=== PATIENT | male | born 1990 | race Caucasian/White ===

== ENCOUNTER 2020-04-13 18:14 | Inpatient (IN) | payer BC, MEDICAID ==
[~2020-04-13] VITALS: Ht 172.7 cm; Wt 66.6 kg
[2020-04-13] MEDS ORDERED: magnesium hydroxide 30ml (MOM) UD suspension PO PRN (19:05)
[2020-04-13] MEDS ORDERED: acetaminophen 325mg tablet PO PRN (19:05)
[2020-04-13] MEDS ORDERED: haloperidol 5mg tablet PO PRN (19:05)
[2020-04-13] MEDS ORDERED: mag hydrox/Alum hydrox/simeth 30ml oral suspension PO PRN (19:05)
[2020-04-13] MEDS ORDERED: diphenhydrAMINE 25mg capsule PO PRN (19:05)
[2020-04-13] MEDS ORDERED: loperamide 2mg capsule PO PRN (19:05)
[2020-04-13] MEDS ORDERED: LORazepam 1 MG tablet PO PRN (19:05)
[2020-04-13] MEDS ORDERED: quetiapine 100mg tablet PO PRN (19:05)
[2020-04-13] MEDS ORDERED: NO HOME MEDS (19:39)
[2020-04-13 20:00] VITALS: BP 112/78
[2020-04-13] MEDS: traZODone 50mg tablet PO PRN (20:40)
[2020-04-13] MEDS: acetaminophen 325mg tablet PO PRN (20:40)
--- NOTE | 2020-04-14 01:36 | NUR ---
ADMIT NOTE: Pt admitted to unit at 1853, accompanied by BERONICA Otero. Safety check completed and belongings inventoried. Oriented to unit, shower offered, but pt declined. Why here: Pt brought into [facility] by after becoming increasingly agitated during an argument with his girlfriend; he became so upset that he began to perform self harm by hitting head on the cement outside the home. Pt had been drinking and using cocaine. The neighbors called the welding operator and he was brought in for a mental evaluation for DTS. Pt has a hx of feeling SI, substance abuse and self-harm behavior while under the influence. He has never been admitted nor diagnosed with a psychiatric condition. 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 Social Support: GF and her 2 kids Neighbors - 2 men in their 40s Remains in contact with foster parents Mother committed suicide when he was 27 (they had rekindled their relationship when he turned 20) Drug Hx: Meth, 8 months from [id number] Alcohol, Recent spike since pandemic onset, increasing through March: 3-4 mixed drinks and a~5 beers nightly Tobacco, Current everyday smoker, ~7 cigarettes daily Medical Hx: L4/L5 Chronic pain, had steroid injections in the past Pt currently endorsing SI vaguely, but stating he is trying to remain positive regarding recent argument and break up with his gf. This is a primary social support for the pt and he presented as teary and sad through out the assessment. Endorses 9/10 depression and 6/10 anxiety; pt stated he would play xbox a lot before as a method of coping, prior to drinking. Pt stated he has a hard time controlling how much he drinks when in an environment when other people are drinking. Recently, pts gf has had family members visiting that are heavy drinkers; pt states he has fallen in line with those habits and now it is causing a lot of problems, including this current crisis. Yoanna felt off and on like killing myself in my life, and I stated I wanted to drive and wrap myself around a tree the other night, but I know I need help. Pt wants to get better and and is hopeful that he will be able to rekindle his relationship. He is attached to her children and states I have seen a lot of symbols in nature on the ride up here that we are going to be okay. Pt cries when discussing his relationship status.
[2020-04-14] MEDS: hydrOXYzine 25 MG tablet PO PRN ×2 (07:53→14:00)
[2020-04-14 07:56] VITALS: BP 129/70
[2020-04-14] MEDS: nicotine 21mg patch - 24 hr TD SCH (07:56)
[2020-04-14 08:06] LABS: HEMOGLOBIN A1C 5.1 % (4.5-6.2)
[2020-04-14 08:12] LABS: CHOL/HDL RATIO 2.8 (0.00-4.99); CHOLESTEROL 135 MG/DL (0-200); HDL CHOLESTEROL 48 MG/DL (35-60); LDL CHOLESTEROL 74 MG/DL (50-100); TRIGLYCERIDES 58 MG/DL (20-135)
--- NOTE | 2020-04-14 10:01 | NUR ---
Malnutrition Consult: Pt admit to [facility] pending note at this time for DX. PO 75-100% avg first meal today, no edema/wounds, normal strength, and no prior wt hx since initial admit. At this time pt does not meet minimum malnutrition criteria. Will continue to monitor. Addendum: 04/14/20 at [address] Amended: Links added.
[2020-04-14] MEDS: multivitamins, therapeutics tablet PO SCH (13:10)
[2020-04-14] MEDS: folic acid 1mg tablet PO SCH (13:10)
--- NOTE | 2020-04-14 15:51 | NUR ---
Nursing Progress Note: Legal hold: 5150 Client on involuntary status for DTS. Report received from EVELIA Vo with the use of SBAR. Why are they here: Per report, pt brought into [facility] by after becoming increasingly agitated during an argument with his girlfriend; he became so upset that he began to perform self-harm by hitting head on the cement outside the home. Pt had been drinking and using cocaine. The neighbors called the machine whitener and he was brought in for a mental evaluation for DTS. Assessment What has happened this shift: Pt sleeping at the change of shift. He was cooperative with assessment. Pt shares that he has felt sad since Wednesday. Pt reports depression and anxiety. Pt denies SI, A/V H. Pt became tearful as he spoke about his mom. He says he still feels like he is in denial over his moms . He reports that he feels resentful because of caring for his mom all the time. 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 He talks about making many mistakes and identifies his alcohol use as the source of his issues. He said that he was in the [place] crisis unit last year due to feeling overwhelmed, depressed, and suicidal. As he talked about his feelings, he stated, Ultimate fear is leaving here and going back to nothing and having to come back to this [unit]. He is motivated to seek help and discover ways to deal with his problems. S/I, H/I: Denies at this time A/VH: Denies Sleep: Napped during the morning ADL's: Independent Group attendance: N/A Were meds taken: Yes Any med S/E: None noted or observed Mental Status Exam Appearance: Neat and clean, green scrubs Eye contact: Direct Behavior: Pleasant and cooperative Speech: Normal rate and rhythm Mood: Depressed Affect: Tearful Thought process: Linear and connected Thought Content: Concerned about girlfriend and their issues. Resentful feelings towards his mother and feeling of denial over her . Cognition: A&Ox4 Insight: fair Judgment: fair Interventions PRN's used: Atarax x2 Therapeutic interventions: Maintained a safe and supportive milieu, provided clear and simple instructions, active listening, 1:1 therapeutic assessment, attempted to re-orient to reality, medication administration/education/monitoring, Q15 min safety checks. Restraints/seclusion/emergency medication: N/A Justification of Continued Inpatient Treatment: Pt continues to endorse depression, sadness, and anxiety. He denies SI, but feels he would not be safe if he were discharged at this time. Continued treatment is needed to interrupt current crisis, provide medication management, and decrease the risk of re-hospitalization if discharged before condition is stabilized.
[2020-04-14] MEDS: acetaminophen 325mg tablet PO PRN (19:19)
[2020-04-14 20:00] VITALS: BP 131/81
[2020-04-14] MEDS: traZODone 50mg tablet PO PRN (21:39)
--- NOTE | 2020-04-15 02:00 | NUR ---
Nursing Progress Note: Legal hold: 5150 Client on involuntary status for DTS Report received from EVELIA Burno with the use of SBAR. Why are they here: Per report, pt brought into [place] by after becoming increasingly agitated during an argument with his girlfriend; he became so upset that he began to perform self-harm by hitting head on the cement outside the home. Pt had been drinking and using cocaine. The neighbors called the gear repair supervisor and he was brought in for a mental evaluation for DTS. Assessment What has happened this shift: Pt watching TV during change of shift, and predominantly spent the evening enjoying a movie and engaging with peers. During 1:1, pt denied SI but endorses increased depression and anxiety from last night. When asked to elaborate, pt stated it is because he talked to his gf for the first time since being taken to the hospital. The conversation overall went well and i was able to share that we may need to have counseling to improve our communication. I understand she is still angry about the incident but relieved to know she still considers us to be in a relationship. 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 Pt continued to state all the measures he needs to take to ensure the relationship goes well; RN reminded pt that it is team effort and both parties should be contributing to positive change. Pt agreed, but states he doesnt think she is as empathetic/sympathetic as him; I had to work hard to see things the way I do now. Pt states he wants to help others, and that he felt like he connected with a peer. I was able to give her advice and now she seems happier. RN applauded being aware of others plights but to not lose sight of focusing on helping himself while he is here. Pt agreed, and states he is overall optimistic and wants to change but fears I am going to end up making mistakes like my mother. Pt says he never dealt with the grief of her passing, predominantly feeling resentment and sadness, and thinks I just need to find a new mom to fill the void. RN countered that it is best first to process his complicated grief before searching for someone to fill that void; pt became teary and said Yes. I have a lot I want to accomplish. S/I, H/I: Denies A/VH: Denies Sleep: Sleeping well during the night with PRN aid. See Sleep Assessment. ADL's: Independent Group attendance: N/A Were meds taken: Yes Any med S/E: None noted nor observed Mental Status Exam Appearance: Neat, wearing unit scrub pants, personal shirts, and nonskid socks with slip on sandals Eye contact: Direct Behavior: Pleasant, Cooperative, Watching TV, Attended snack, Engaging with a few peers Speech: Clear, normal rate and rhythm Mood: Depressed but hopeful Affect: Congruent to mood, intermittently tearful Thought process: Linear Thought Content: Improving communication with his gf, learning how to process his mothers , goals for the future Cognition: A&Ox4 Insight: Fair Judgment: Fair Interventions PRN's used: Tylenol 650mg for lower back pain to good effect Therapeutic interventions: Maintained a safe and supportive milieu, provided clear and simple instructions, active listening, 1:1 therapeutic assessment, attempted to re-orient to reality, medication administration/education/monitoring, Q15 min safety checks. Restraints/seclusion/emergency medication: N/A Justification of Continued Inpatient Treatment: Pt continues to endorse depression and anxiety. Pt feels he would not be safe if he were discharged at this time. Continued treatment is needed to interrupt current crisis, provide medication management, and decrease the risk of re-hospitalization if discharged before condition is stabilized.
[2020-04-15] MEDS: folic acid 1mg tablet PO SCH (08:03)
[2020-04-15] MEDS: multivitamins, therapeutics tablet PO SCH (08:03)
[2020-04-15] MEDS: venlafaxine XR 37.5mg cap (Q24H) PO SCH (08:03)
[2020-04-15] MEDS: nicotine 21mg patch - 24 hr TD SCH (08:04)
[2020-04-15 08:51] VITALS: BP 117/80
[2020-04-15] MEDS: hydrOXYzine 25 MG tablet PO PRN ×2 (09:47→19:59)
--- NOTE | 2020-04-15 17:34 | NUR ---
NURSING PROGRESS NOTE: Legal hold: 5150 Client on involuntary status for DTS Report received from RN with use of SBAR Why are they here: Client transferred from [facility]. Client reports increasing depression and thoughts of suicide. Client is a daily Meth user, and has hx of heroin use (stopped 7 years ago). States he has access to heroin if he decided to overdose. Several prior overdose attempts. Client presents with blunted affect and depressed mood. Assessment What has happened this shift: Received pt sleeping in bed. Patient spends the day isolating and withdrawn, sleeping from coming down from meth. 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 Pt. reports that he was sober for years, then relapsed. He has been working at his first legitimate job at a[employer] p[employer] but does not know if he still has a job since he hasnt contacted them. Pt. got his son living with him, but now he is living with his aunt. Patient is homeless, and states the worst thing that could happen to me is that I get out of here and I am homeless. Pt. is thinking of relocating back to [place] where he doesnt know anybody and can start his life over again. He reports that there is a clean and sober house that will accept him in [place]. SI/HI: Denies. A/VH: Denies. Sleep: 10 hrs NOC, slept most of the day. ADL's: Independent Group attendance: NA Were meds taken: Yes, patient is medication compliant. Any med S/E: None. Mental Status Exam Appearance: Disheveled laying in bed. Eye contact: Fair Behavior: Cooperative Speech: Soft, normal rate, rhythm, and tone Mood: Depressed. Affect: Restricted Thought process: Linear Thought Content: Whether he has a job, where he will be discharged. Cognition: Lethargic Insight: Poor Judgment: Poor Interventions PRN's used: None Therapeutic interventions: 1:1 therapeutic assessment, establishment of rapport, active listening, therapeutic conversation, medication administration/education/monitoring, encouraged sleep, contracts for safety, Q15 min safety checks. Restraints/seclusion/emergency medication: N/A Justification of Continued Inpatient Treatment: Pt requires interruption of current crisis, medication adjustment and monitoring on a safe and therapeutic environment until stable to prevent self-harm and/or readmission.
[2020-04-15 20:00] VITALS: BP 109/71
[2020-04-15] MEDS: traZODone 50mg tablet PO PRN (21:27)
--- NOTE | 2020-04-16 02:37 | NUR ---
Nursing Progress Note: Legal hold: 5150 Client on involuntary status for DTS Report received from EVELIA Bruno with the use of SBAR. Why are they here: Per report, pt brought into [facility] ED by after becoming increasingly agitated during an argument with his girlfriend; he became so upset that he began to perform self-harm by hitting head on the cement outside the home. Pt had been drinking and using cocaine. The neighbors called the postal carrier and he was brought in for a mental evaluation for DTS. Assessment What has happened this shift: Pt watching TV during change of shift. During 1:1, pt denied SI but endorses decreased depression 3/10 and generalized anxiety 6/10, for which Atarax 50mg was administered to good effect. Pt states the medication helps my mind calm down so I can return to the present moment, instead of letting my anxiety or thoughts spiral. Pt states he was diagnosed with depression while here, and it gives a sense of control: I think the medications are helping because I feel more like myself. Pt is hopeful for his future, describing career goals within [employer] and personal goals of starting counseling and continuing to work on his relationship. Ill be going back to my girlfriends once Im discharged. Pt compliant with medications and went to sleep around 0. S/I, H/I: Denies A/VH: Denies Sleep: Sleeping well during the night with PRN aid. See Sleep Assessment. ADL's: Independent Group attendance: N/A Were meds taken: Yes Any med S/E: None noted nor observed Mental Status Exam Appearance: Neat, wearing unit scrub pants, personal shirt, and nonskid socks with slip on sandals Eye contact: Direct Behavior: Cooperative, Watching TV, Attended snack, Engaging with peers Speech: Clear, normal rate and rhythm Mood: Good Affect: Pleasant; talkative and laughing Thought process: Linear Thought Content: discharging and working on his goals Cognition: A&Ox4 Insight: Good Judgment: Good Interventions PRN's used: Atarax 50mg for anxiety to good effect Therapeutic interventions: Maintained a safe and supportive milieu, provided clear and simple instructions, active listening, 1:1 therapeutic assessment, attempted to re-orient to reality, medication administration/education/monitoring, Q15 min safety checks. Restraints/seclusion/emergency medication: N/A Justification of Continued Inpatient Treatment: Pending no medications changes, pt could potentially discharge within the next 24-48 hours per the provider.
[2020-04-16 08:31] VITALS: BP 114/66
[2020-04-16] MEDS: venlafaxine XR 37.5mg cap (Q24H) PO SCH (08:33)
[2020-04-16] MEDS: multivitamins, therapeutics tablet PO SCH (08:33)
[2020-04-16] MEDS: folic acid 1mg tablet PO SCH (08:33)
[2020-04-16] MEDS: nicotine 21mg patch - 24 hr TD SCH (08:33)
--- NOTE | 2020-04-16 10:00 | NUR ---
Group Therapy: Process Group This Clinicians goals for this process group were as follows: (1) Ask scaling questions about patients current anxiety, depression, and irritability symptoms as a check-in. (2) Share psychoeducation about emotional/situational triggers as they relate to the onset of unwanted mental health symptoms. (3) Identify examples of emotional/situational triggers within the group milieu. (4) Share psychoeducation on interventions as tools to reduce emotional escalation. (5) Identify several interventions within the group milieu that patients may utilizing in reducing emotional escalation caused by emotional/situational triggers. (6) Engage patients in discussion of the topics shared within the group milieu. Patient identified experiencing the following levels of anxiety, depression, and anger/irritability while present in the group milieu. Anxiety: 03/17 Depression: 04/17 Anger/irritability: 11/17 Patient presented as open and cooperative within the group milieu. Patient was dressed in a black non-descript t-shirt and green scrub bottoms. Patient presented as verbally engaged within the therapeutic milieu, often sharing comments on the topic of feelings that one experiences in their body, thoughts one experiences, and interventions that one can use to reduce emotional escalation, which this Clinician wrote down on the white board. Patient presented as nonobtrusive within the group setting. Claude Stinson MA, BJORN Addendum: 04/17/20 at 0815 by Claude Stinson SS Amended: Links added.
[2020-04-16] MEDS: hydrOXYzine 25 MG tablet PO PRN (11:54)
[2020-04-16] MEDS ORDERED: NICO-687 TD (12:30)
[2020-04-16] MEDS ORDERED: HYDR-3686 PO (12:30)
[2020-04-16] MEDS ORDERED: TRAZ-251 PO (12:30)
[2020-04-16] MEDS ORDERED: EFF37.5XRC PO (12:30)
--- NOTE | 2020-04-16 13:25 | NUR ---
DISCHARGE NOTE: Patient's belongings were inventoried and given to patient. Patient denies SI. Patient is discharged in stable condition.
[2020-04-17] MEDS ORDERED: venlafaxine XR 37.5mg cap (Q24H) PO SCH (08:00)
== END 2020-04-16 13:25 | disposition short-term general hospital (02) | DRG 751 ==
LOC: ADULT MH 18:50
PROVIDERS: ADMIT Psychiatry & Neurology Psychiatry; ATTEND Psychiatry & Neurology Psychiatry
DX: F33.1 Major depressive disorder, recurrent, moderate (principal); F10.10 Alcohol abuse, uncomplicated; F43.12 Post-traumatic stress disorder, chronic; F19.20 Other psychoactive substance dependence, uncomplicated; F17.210 Nicotine dependence, cigarettes, uncomplicated; Y90.9 Presence of alcohol in blood, level not specified; Z88.8 Allergy status to other drugs, medicaments and biological substances; Z91.013 Allergy to seafood
CPT/HCPCS: 36415; 80061; 83036; 87081; Q0177